=== PATIENT | male | born 1990 | race Caucasian/White ===

== ENCOUNTER 2025-05-27 16:07 | Inpatient (IN) | payer OTHER ==
[~2025-05-27] VITALS: Ht 172.7 cm; Wt 72.9 kg
[2025-05-27] MEDS ORDERED: VALP250C48 PO (17:35)
[2025-05-27] MEDS ORDERED: CLON-592 PO (17:35)
[2025-05-27] MEDS ORDERED: HALO100V36 IM (17:35)
[2025-05-27] MEDS ORDERED: OLAN10TA74 PO (17:35)
[2025-05-27] MEDS ORDERED: DIPH50CA39 PO (17:35)
[2025-05-27 18:05] LABS: PLATELET COUNT (AUTO) 265 K/uL (150-450); RED BLOOD CELL COUNT(AUTO) 4.42 MIL/uL (4.50-5.90); RED CELL DISTRIBUTION WIDTH 12.7 % (11.5-14.5); WHITE BLOOD COUNT (AUTO) 4.5 K/uL (4.5-11.0)
[2025-05-27 18:14] LABS: CALCIUM, TOTAL 8.8 mg/dL (8.8-10.5); CREATININE 0.85 mg/dL (0.60-1.30); GLOMERULAR FILTR. RATE CALC > 60 mL/min (>60); GLUCOSE,RANDOM 91 mg/dL (70-110); SODIUM SERUM 139 mmol/L (136-145); UREA NITROGEN, BLOOD 20 mg/dL (7-18)
[2025-05-27] MEDS ORDERED: ONDANSETRON HCL 4 MG/2 ML VIAL IVP PRN (20:00)
[2025-05-27] MEDS: DOCUSATE SODIUM 100 MG CAPSULE PO SCH (20:40)
[2025-05-27] MEDS: LORazepam 2 MG/ML VIAL IVP ONE (20:46)
[2025-05-27] MEDS: BENZTROPINE MESYLATE 2 MG/2 ML VIAL IM ONE (21:34)
[2025-05-27] MEDS: DEXTROSE 5%-LACTATED RINGERS 1,000 ML IV ONE (21:35)
[2025-05-27 22:59] VITALS: BP 109/86; PULSE 77; RESP 18; TEMP 97.7; O2SAT 97
[2025-05-27] MEDS: HEPARIN SODIUM,PORCINE 5,000 UNITS/ML VIAL SQ SCH (23:48)
[2025-05-28 00:57] LABS: APPEARANCE,URINE CLEAR (CLEAR); GLUCOSE, URINE (UA) NEGATIVE (NEGATIVE); LEUKOCYTE ESTERASE ,URINE NEGATIVE (NEGATIVE); NITRATE,URINE NEGATIVE (NEGATIVE); OCCULT BLOOD,URINE NEGATIVE (NEGATIVE); PH,URINE DRUG SCREEN 7.0 (5.0-8.0); SPECIFIC GRAVITIY, URINE 1.033 (1.003-1.030)
[2025-05-28 01:00] LABS: AMPHET/METH SCREEN,URINE NEGATIVE (NEGATIVE); BARBITURATE SCREEN, URINE NEGATIVE (NEGATIVE); CANNABINOID SCREEN,URINE NEGATIVE (NEGATIVE); COCAINE SCREEN,URINE NEGATIVE (NEGATIVE); METHADONE SCREEN, URINE NEGATIVE (NEGATIVE)
[2025-05-28 01:01] LABS: ALCOHOL, URINE DRUG SCREEN NEGATIVE (NEGATIVE)
[2025-05-28 04:00] VITALS: BP 120/56; PULSE 76; RESP 18; TEMP 98.1; O2SAT 97
[2025-05-28 07:22] VITALS: BP 131/65; PULSE 74; RESP 18; TEMP 98.6; O2SAT 96
[2025-05-28 07:58] LABS: PLATELET COUNT (AUTO) 238 K/uL (150-450); RED BLOOD CELL COUNT(AUTO) 4.16 MIL/uL (4.50-5.90); RED CELL DISTRIBUTION WIDTH 12.6 % (11.5-14.5); WHITE BLOOD COUNT (AUTO) 5.1 K/uL (4.5-11.0)
[2025-05-28 08:10] LABS: CALCIUM, TOTAL 8.4 mg/dL (8.8-10.5); CREATININE 0.73 mg/dL (0.60-1.30); GLOMERULAR FILTR. RATE CALC > 60 mL/min (>60); GLUCOSE,RANDOM 92 mg/dL (70-110); SODIUM SERUM 137 mmol/L (136-145); UREA NITROGEN, BLOOD 13 mg/dL (7-18)
[2025-05-28] MEDS: ACETAMINOPHEN 325 MG TABLET PO PRN (08:46)
[2025-05-28] MEDS: BENZTROPINE MESYLATE 0.5 MG TABLET PO SCH (15:21)
[2025-05-28 19:25] VITALS: BP 138/69; PULSE 82; RESP 18; TEMP 97.9; O2SAT 96
[2025-05-28] MEDS: CARBIDOPA/LEVODOPA 10-100 MG TABLET PO SCH (22:42)
[2025-05-29 04:41] VITALS: BP 110/60; PULSE 71; RESP 18; TEMP 97.5; O2SAT 97
[2025-05-29 08:00] VITALS: BP 98/78; PULSE 68; RESP 20; TEMP 97.5; O2SAT 98
[2025-05-29] MEDS: RINGERS SOLUTION,LACTATED 1,000 ML IV ONE (13:59)
[2025-05-29] MEDS: BENZTROPINE MESYLATE 1 MG TABLET PO SCH (20:13)
[2025-05-29 20:21] VITALS: PULSE 19; TEMP 98.1; O2SAT 97
[2025-05-30 04:47] VITALS: BP 139/98; PULSE 67; RESP 18; TEMP 98.1; O2SAT 97
[2025-05-30 08:43] VITALS: BP 103/73; PULSE 64; RESP 19; TEMP 98; O2SAT 96
[2025-05-30 15:38] VITALS: BP 97/47; PULSE 60; RESP 18; TEMP 97.8; O2SAT 95
[2025-05-30 20:00] VITALS: BP 103/78; PULSE 61; RESP 18; TEMP 98.1; O2SAT 97
[2025-05-31 04:00] VITALS: BP_SYST 100; BP_SYST 114; BP_DIAS 52; BP_DIAS 64; PULSE 55; PULSE 57; RESP 18; TEMP 97.5; TEMP 98.3; O2SAT 97
[2025-05-31 08:39] VITALS: BP 112/64; PULSE 71; RESP 18; TEMP 98; O2SAT 100
[2025-05-31] MEDS ORDERED: BENZ-247 PO ×2 (15:13→16:19)
== END 2025-05-31 19:19 | DRG 91 ==
LOC: EMS 16:07 → EDH 19:57 → 6N 22:35
PROVIDERS: ADMIT Internal Medicine; ATTEND Internal Medicine
PROC: GZ56ZZZ Individual Psychotherapy, Supportive (ICD-10-PCS; 2025-05-28)
PROC: GZ52ZZZ Individual Psychotherapy, Cognitive (ICD-10-PCS; principal; 2025-05-31)
DX: G25.1 Drug-induced tremor (principal); E43 Unspecified severe protein-calorie malnutrition; M62.82 Rhabdomyolysis; G20.C Parkinsonism, unspecified; E86.0 Dehydration; F20.9 Schizophrenia, unspecified; I10 Essential (primary) hypertension; Z68.24 Body mass index [BMI] 24.0-24.9, adult; Z79.899 Other long term (current) drug therapy; T44.3X5A Adverse effect of other parasympatholytics [anticholinergics and antimuscarinics] and spasmolytics, initial encounter
CPT/HCPCS: 80048; 80164; 80307; 81003; 82550; 83735; 85025; 96361; 96372; 96374; 96375; G0480; J0515; J1200; J1644; J2060; J7120; 36415-L1; 36415-TC